=== PATIENT | female | born 1985 | race Caucasian/White ===

== ENCOUNTER 2021-07-31 16:49 | Emergency (ER) | payer MEDICAID ==
[2021-07-31] MEDS ORDERED: cefTRIAXone 1 GM Vial IM ONE (18:05)
== END 2021-07-31 18:30 | disposition home or self-care (01) ==
LOC: JD.ED 16:49
DX: S41.151A Open bite of right upper arm, initial encounter (principal); L03.113 Cellulitis of right upper limb; Z88.8 Allergy status to other drugs, medicaments and biological substances; W54.0XXA Bitten by dog, initial encounter
CPT/HCPCS: 96372; 99283; J0696

== ENCOUNTER 2021-09-22 08:32 | Emergency (ER) | payer MEDICAID | END 2021-09-22 15:20 | disposition home or self-care (01) | LOC: JD.ED 08:32 | DX: O02.1 Missed abortion (principal); Z88.8 Allergy status to other drugs, medicaments and biological substances | CPT/HCPCS: 36415; 76817; 76817-26; 84702; 85025; 86900; 86901; 99284; 99284-25 ==

== ENCOUNTER 2022-09-02 07:04 | Day surgery (SDC) | payer MEDICAID ==
[~2022-09-02 07:04] MED LIST: Acetaminophen 325 MG Tab PO SCH; Lactated Ringers 1,000 ML IV SCH; Morphine 8 MG, EPINEPHrine 0.3 MG, Cefuroxime 750 MG, Ketorolac 30 MG, Sodium Chloride ... PRN; Pregabalin 25 MG Cap PO SCH; oxyCODONE ER 10 MG TAB.ER PO SCH
[2022-09-02] MEDS ORDERED: Lactated Ringers 1,000 ML ONE (07:08)
[2022-09-02] MEDS ORDERED: Propofol 200 MG/20 ML SDV ONE ×3 (07:08→09:14)
[2022-09-02] MEDS ORDERED: fentaNYL 100 MCG/2 ML SDV ONE (07:08)
[2022-09-02] MEDS ORDERED: Ondansetron 4 MG/2 ML SDV ONE (07:08)
[2022-09-02] MEDS ORDERED: Midazolam 1 MG/ML 2 ML SDV ONE (07:08)
[2022-09-02] MEDS ORDERED: ceFAZolin 2 GM Vial ONE ×2 (07:08→08:15)
[2022-09-02] MEDS ORDERED: EPINEPHrine 1 MG/ML SDV ONE (07:14)
[2022-09-02] MEDS ORDERED: Ropivacaine 0.5% 5 MG/ML 30 ML SDV ONE (07:15)
[2022-09-02] MEDS ORDERED: Dexmedetomidine 200 MCG/2 ML SDV ONE (07:15)
[2022-09-02] MEDS ORDERED: Triamcinolone Acetonide 40 MG/ML 1 ML SDV ONE ×2 (07:22→08:03)
[2022-09-02] MEDS ORDERED: Vancomycin 1 GM SDV ONE (07:22)
[2022-09-02] MEDS ORDERED: Bupivacaine 0.25% 10 ML SDV ONE (07:22)
[2022-09-02] MEDS ORDERED: Tranexamic Acid 1,000 MG/10 ML Vial ONE (07:22)
[2022-09-02] MEDS ORDERED: HYDROmorphone 0.5 MG/0.5 ML Syringe IVPUSH PRN (09:29)
[2022-09-02] MEDS ORDERED: fentaNYL 100 MCG/2 ML SDV IVPUSH PRN (09:29)
[2022-09-02] MEDS ORDERED: Ondansetron 4 MG/2 ML SDV IVPUSH PRN (09:29)
[2022-09-02] MEDS ORDERED: oxyCODONE 5 MG Tab PO ONE (10:23)
== END 2022-09-02 15:45 | disposition home or self-care (01) ==
LOC: JD.SDS 07:04
PROVIDERS: ATTEND Orthopaedic Surgery
DX: M17.0 Bilateral primary osteoarthritis of knee (principal); F41.9 Anxiety disorder, unspecified; K21.9 Gastro-esophageal reflux disease without esophagitis; F32.A Depression, unspecified; F43.10 Post-traumatic stress disorder, unspecified; F90.9 Attention-deficit hyperactivity disorder, unspecified type; Z88.6 Allergy status to analgesic agent; Z87.891 Personal history of nicotine dependence; Z79.899 Other long term (current) drug therapy
CPT/HCPCS: 20610; 27447; 64447; 73560; 97110; 97116; 97161; A9270; C1713; C1776; J0171; J0690; J0697; J1885; J2250; J2270; J2405; J2704; J2795; J3010; J3301; J3370; J3490; J7120; 01402

== ENCOUNTER 2022-11-25 08:12 | Day surgery (SDC) | payer MEDICAID ==
[~2022-11-25 08:12] MED LIST changes: +Dexmedetomidine 200 MCG/2 ML SDV ONE; +EPINEPHrine 1 MG/ML SDV ONE; +Ketorolac 30 MG/ML SDV ONE; +Midazolam 1 MG/ML 2 ML SDV ONE; +Propofol 200 MG/20 ML SDV ONE; +Ropivacaine 0.5% 5 MG/ML 30 ML SDV ONE; +Sodium Chloride 0.9% 10 ML Syringe FLUSH PRN; +Sodium Chloride 0.9% 10 ML Syringe FLUSH SCH; +Tranexamic Acid 1,000 MG/10 ML Vial ONE; +Vancomycin 1 GM SDV ONE; +ceFAZolin 2 GM Vial ONE; +fentaNYL 100 MCG/2 ML SDV ONE
[2022-11-25] MEDS ORDERED: Propofol 200 MG/20 ML SDV ONE (09:55)
[2022-11-25] MEDS ORDERED: Ondansetron 4 MG/2 ML SDV ONE (10:10)
[2022-11-25] MEDS ORDERED: Ondansetron 4 MG/2 ML SDV IVPUSH PRN (10:15)
[2022-11-25] MEDS ORDERED: HYDROmorphone 0.5 MG/0.5 ML Syringe IVPUSH PRN (10:15)
[2022-11-25] MEDS ORDERED: fentaNYL 100 MCG/2 ML SDV IVPUSH PRN (10:15)
[2022-11-25] MEDS ORDERED: Lactated Ringers 1,000 ML IV ONE (10:15)
== END 2022-11-25 14:47 | disposition home or self-care (01) ==
LOC: JD.SDS 08:12
PROVIDERS: ATTEND Orthopaedic Surgery
DX: M17.12 Unilateral primary osteoarthritis, left knee (principal); G89.29 Other chronic pain; F41.9 Anxiety disorder, unspecified; F32.A Depression, unspecified; F43.10 Post-traumatic stress disorder, unspecified; K21.9 Gastro-esophageal reflux disease without esophagitis; Z98.84 Bariatric surgery status; Z90.49 Acquired absence of other specified parts of digestive tract; Z90.89 Acquired absence of other organs; Z79.899 Other long term (current) drug therapy; Z88.8 Allergy status to other drugs, medicaments and biological substances; Z87.891 Personal history of nicotine dependence; Z79.01 Long term (current) use of anticoagulants
CPT/HCPCS: 0055T; 27447; 64447; 73560; 81025; 97161; A9270; C1713; C1776; J0171; J0690; J0697; J1885; J2250; J2270; J2405; J2704; J2795; J3010; J3370; J7120; 01402; 01480; J3490